=== PATIENT | male | born 1960 | race Caucasian/White ===

== ENCOUNTER 2017-10-17 11:59 | Emergency (ER) | payer OTHER ==
[~2017-10-17] VITALS: Ht 185.4 cm; Wt 127.5 kg
--- NOTE | 2017-10-17 12:10 | NUR ---
Placed in room 6 . Placed on teletypesetter monitor, blood pressure machine and pulse oximeter. To gown for exam. Side rails up. Report RECEIVED FROM ALYSSIA HOOPER
[2017-10-17] MEDS: ASPIRIN 81 MG TAB.CHEW PO ONE (12:18)
[2017-10-17] MEDS: DILTIAZEM HCL 25 MG/5 ML VIAL IVP ONE (12:19)
--- NOTE | 2017-10-17 12:20 | NUR ---
ER at bedside examining patient.
--- NOTE | 2017-10-17 12:23 | NUR ---
PT BIB EMD FROM [facility] S/P FINDING OF AFIB W/ RVR WHILE AT CLINIC FOR ROUTINE VISIT. PT DENIES CP OR SOB. PT HAS NO OTHER ACUTE DISTRESS NOTED. PT PRESENTS W/ IV PLACED IN RAC. EKG DONE UPON ARRIVAL.
[2017-10-17 12:29] LABS: HEMATOCRIT 48.3 % (36-54); HEMOGLOBIN 16.5 g/dL (14.0-18.0); MEAN CORPUSCULAR HEMOGLOBIN 30 pg (27-31); MEAN CORPUSCULAR HGB CONC 34 % (32-36); MEAN CORPUSCULAR VOLUME 88 fL (79.0-98.0); PLATELET COUNT (AUTO) 227 K/uL (130-430); RED CELL DISTRIBUTION WIDTH 12.7 % (9.0-15.0); WHITE BLOOD COUNT (AUTO) 5.8 K/uL (4.8-10.8)
[2017-10-17 12:59] LABS: INR 1.2 (0.80-1.20); PROTHROMBIN TIME 12.4 SECS (9.5-12.5)
[2017-10-17 13:00] LABS: CALCIUM 9.2 mg/dL (8.4-11.0); CREATININE 1.23 mg/dL (0.55-1.30); POTASSIUM 3.8 mmol/L (3.5-5.1)
[2017-10-17 13:06] LABS: BASOPHILS % (MANUAL) 0 % (0-2); EOSINOPHILS % (MANUAL) 0 % (0-7); LYMPHOCYTES % (MANUAL) 18 % (20-46); MONOCYTES % (MANUAL) 8 % (0-11)
--- NOTE | 2017-10-17 13:35 | NUR ---
PT MEDICATED TOLERATED WELL. HR 90 AFTER CARDIZEM. WILL CONTINUE TO MONITOR PT FOR IMPROVEMENT.
[2017-10-17] MEDS: ATENOLOL 25 MG TABLET(TENORMIN) PO ONE (13:52)
--- NOTE | 2017-10-17 14:20 | NUR ---
AWAITING TX TIME FROM [facility].
[2017-10-17 14:30] VITALS: BP_SYST 131
--- NOTE | 2017-10-17 14:30 | NUR ---
PT DENIES CP OR SOB. PT HAS NO C/O PAIN.
--- NOTE | 2017-10-17 15:04 | NUR ---
Patient to be transferred to [facility]. Is being transferred due to higher level of care. Receiving facility has accepting physician and available space. ER physician has signed transfer form. Patient or responsible democrat has agreed to transfer and signed form. Patient belongings inventoried and will be sent with patient. Copy of nursing notes, lab reports, EKG, Physicians Orders and X-rays to be sent with patient. Report called to KINDRA CRABTREE RN at receiving facility. Receiving physician is . [facility] ambulance service has been called for transfer. ETA is [id number].
== END 2017-10-17 15:04 | disposition short-term general hospital (02) ==
LOC: SED 11:59
DX: I48.91 Unspecified atrial fibrillation (principal); M10.9 Gout, unspecified
CPT/HCPCS: 36415; 71045; 80048; 83880; 84484; 85007; 85027; 85379; 85610; 85730; 93005; 96374; 99285; J3490

== ENCOUNTER 2017-10-30 12:16 | Emergency (ER) | payer OTHER ==
[~2017-10-30] VITALS: Ht 185.4 cm; Wt 127.0 kg
[2017-10-30 12:16] VITALS: BP_SYST 84
[2017-10-30] MEDS ORDERED: NACL 0.9% 1,000 ML IV ONE (12:31)
[2017-10-30] MEDS ORDERED: CLOPIDOGREL BISULFATE 75 MG TABLET PO ONE (12:45)
[2017-10-30] MEDS ORDERED: ASPIRIN 325 MG TABLET PO ONE (12:45)
[2017-10-30] MEDS ORDERED: DILTIAZEM HCL 25 MG/5 ML VIAL IVP ONE ×2 (12:45→16:45)
[2017-10-30] MEDS ORDERED: ONDANSETRON HCL 4 MG/2 ML VIAL IVP ONE ×2 (12:45→15:45)
[2017-10-30] MEDS ORDERED: NITROGLYCERIN 0.4 MG TAB.SUBL SL ONE (12:45)
[2017-10-30] MEDS ORDERED: KETOROLAC TROMETHAMINE 60 MG/2 ML VIAL IM ONE (13:00)
[2017-10-30 13:20] LABS: BASOPHILS # (AUTO) 0.2 K/uL (0.0-0.2); BASOPHILS % (AUTO) 1.8 % (0.0-2.0); EOSINOPHILS # (AUTO) 0.4 K/uL (0.0-0.4); EOSINOPHILS % (AUTO) 4.5 % (0.0-4.0); HEMOGLOBIN 17.7 g/dL (14.0-18.0); LYMPHOCYTES # (AUTO) 0.6 K/uL (1.0-5.5); LYMPHOCYTES % (AUTO) 7.4 % (20.5-51.5); MEAN CORPUSCULAR HEMOGLOBIN 29 pg (27-31); MEAN CORPUSCULAR HGB CONC 33 % (32-36); MEAN CORPUSCULAR VOLUME 88 fL (79.0-98.0); MONOCYTES # (AUTO) 0.3 K/uL (0.0-1.0); MONOCYTES % (AUTO) 3.9 % (1.7-9.3); NEUTROPHILS # (AUTO) 6.9 K/uL (1.8-7.7); NEUTROPHILS % (AUTO) 82.4 % (40.0-70.0); PLATELET COUNT (AUTO) 258 K/uL (130-430); RED BLOOD CELL COUNT(AUTO) 6.04 MIL/uL (4.2-6.2); RED CELL DISTRIBUTION WIDTH 12.7 % (9.0-15.0); WHITE BLOOD COUNT (AUTO) 8.4 K/uL (4.8-10.8)
[2017-10-30 13:38] LABS: CALCIUM 8.8 mg/dL (8.4-11.0); CREATININE 1.36 mg/dL (0.55-1.30); POTASSIUM 3.5 mmol/L (3.5-5.1)
[2017-10-30 13:39] LABS: INR 1.3 (0.80-1.20); PROTHROMBIN TIME 12.9 SECS (9.5-12.5)
[2017-10-30 13:42] LABS: ALBUMIN 3.8 g/dL (3.4-4.8); TOTAL BILIRUBIN 1.6 mg/dL (0.0-1.0)
[2017-10-30 14:28] LABS: BILIRUBIN,URINE NEGATIVE (NEGATIVE); BLOOD, URINE NEGATIVE (NEGATIVE); CLARITY/URINE CLEAR (CLEAR); COLOR,URINE YELLOW (YELLOW); GLUCOSE,URINE NEGATIVE (NEGATIVE); KETONES,URINE TRACE (NEGATIVE); LEUKOCYTE ESTERASE ,URINE NEGATIVE (NEGATIVE); NITRITE, URINE NEGATIVE (NEGATIVE); PH,URINE 6.5 (5.0-8.0); PROTEIN URINE NEGATIVE (NEGATIVE)
[2017-10-30] MEDS ORDERED: ACETAMINOPHEN 500 MG TABLET PO ONE (15:45)
[2017-10-30 17:00] VITALS: BP_SYST 116
== END 2017-10-30 17:00 | disposition short-term general hospital (02) ==
LOC: SED 12:16
DX: R00.0 Tachycardia, unspecified (principal); R06.02 Shortness of breath; I48.91 Unspecified atrial fibrillation; F41.9 Anxiety disorder, unspecified; E78.5 Hyperlipidemia, unspecified; M10.9 Gout, unspecified
CPT/HCPCS: 36415; 71045; 80053; 81003; 82150; 82550; 83605; 83690; 84484; 85025; 85384; 85610; 85730; 87040; 96361; 96374; 96375; 96376; 99285; J2405; J3490; J7030